=== PATIENT | female | born 1975 | race Caucasian/White ===

== ENCOUNTER 2019-03-03 19:54 | Emergency (ER) | payer MEDICAID ==
[~2019-03-03] VITALS: Ht 160 cm; Wt 74.8 kg
[2019-03-03 20:01] VITALS: Ht 160 cm; Wt 74.8 kg
[2019-03-03 20:47] LABS: BASOPHIL % 0.6 % (0-2); PLATELET COUNT 275 x10^3mcL (130-400); RED CELL DISTRIBUTION WIDTH 12.6 % (11.5-14.5)
[2019-03-03 21:02] LABS: CALCIUM 9.3 mg/dL (8.5-10.1); CARBON DIOXIDE 30.4 mmol/L (21-32); CHLORIDE SERUM 105 mmol/L (98-107); CREATININE SERUM 0.8 mg/dL (0.6-1.0); GFR1 > 60 mL/min; GLUCOSE SERUM 87 mg/dL (74-106); POTASSIUM SERUM 3.9 mmol/L (3.5-5.1); SODIUM SERUM 142 mmol/L (136-145)
[2019-03-03 21:07] LABS: ALBUMIN 3.9 g/dL (3.4-5.0); ALKALINE PHOSPHATASE 61 U/L (46-116); ALT/SGPT 36 U/L (14-59); AST/SGOT 19 U/L (15-37); BILIRUBIN TOTAL 1.2 mg/dL (0.20-1.00); LIPASE 109 IU/L (73-393); TOTAL PROTEIN, SERUM 7.7 g/dL (6.4-8.2)
[2019-03-04 00:55] VITALS: BP 126/70
== END 2019-03-04 00:55 | disposition home or self-care (01) ==
LOC: ED 19:54
PROVIDERS: Emergency Medicine
DX: R10.12 Left upper quadrant pain (principal); G89.29 Other chronic pain; Z88.1 Allergy status to other antibiotic agents; Z91.041 Radiographic dye allergy status
CPT/HCPCS: 36415; Q0092